=== PATIENT | female | born 1940 | race American Indian/Alaskan Native ===

== ENCOUNTER 2021-08-09 13:19 | Emergency (ER) | payer MEDICARE, OTHER ==
--- NOTE | 2021-08-09 15:42 | XRay Report ---
XR tibia fibula 2V LT INDICATION / CLINICAL INFORMATION: injury. COMPARISON: None available. 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 Moderate knee joint effusion without defin ite lipohemarthrosis. Multiple osteochondral bodies in the posterior knee. No acute fracture or malalignment. Tiny corticated ossific densities at the distal tip of the medial and lateral malleoli, consistent with sequela of remote trauma. No focal soft tissue abnormality. IMPRESSION: 1.No acute process. Signer Name: Jean Claude Russell MD Signed: 08/09/2021 3:38 PM Workstation Name: [id number]
[2021-08-09] MEDS ORDERED: oxyCODONE /ACETAMINOPHEN 5-325MG TAB PO ONE (21:21)
[2021-08-09] MEDS ORDERED: IBUPROFEN 600 MG TAB PO ONE (21:21)
[2021-08-09] MEDS ORDERED: ONDANSETRON 4 MG ODT TAB PO ONE (21:21)
[2021-08-09 21:45] VITALS: BP 109/78
--- NOTE | 2021-08-09 22:14 | XRay Report ---
Left ankle-3 views Left foot-4 views INDICATION: fall - pain. COMPARISON: None available. IMPRESSION: Left ankle: No acute osseous abnormality. Normal alignment. Mild degenerative changes in the ankle w ith moderate soft tissue swelling about the ankle . Left foot: Bulky enthesopathic change along the calcaneal tuberosity with degenerative changes in the foot. No acute osseous abnormality. Signer Name: Jag Silverio MD Signed: 08/09/2021 10:10 PM Workstation Name: [id number]
--- NOTE | 2021-08-09 22:15 | XRay Report ---
Left knee-4 views INDICATION: FALL - PAIN. COMPARISON: None available. IMPRESSION: No acute osseous abnormality. Normal alignment. Advanced tricompartmental DJD with sever al intra-articular osteochondral bodies and a small joint effusion which is likely reactive. Signer Name: Jag Silverio MD Signed: 08/09/2021 10:10 PM Workstation Name: [id number]
--- NOTE | 2021-08-09 22:45 | Emergency Department Report ---
ED Fall HPI - General Chief Complaint: Fall Stated Complaint: FALL/LT LEG INJURY Source: patient Mode of arrival: Ambulatory - History of Present Illness Initial Comments: Patient is an 81-year-old -[place] female with history of hypertension and chronic osteoarthritis who presents to the ED with complaint of acute onset persistent left knee, left ankle and left foot pain with swelling after she tripped and fell down the stairs 2 days ago. Patient states that the pain is especially worse with ambulation and that in the last 24 hours the pain has worsened. Patient denies head or neck injuries, dizziness, syncope, seizures, hip pain, back pain, neck pain, chest pain or shortness of breath, numbness and tingling or weakness of lower extremities bilaterally, nausea and vomiting. MD Complaint: fall, other (LEFT KNEE PAIN, LEFT FOOT AND ANKLE PAIN) -: days(s) (2) Fall From: down stairs (#) (3) When Fall Occurred: other (2 days ago) Fall Witnessed: yes, by family Place Fall Occurred: home Loss of Consciousness: none Prolonged Down Time?: no Symptoms Prior to Fall: none Location: other (LEFT KNEE, LEFT ANKLE AND FOOT) Location - Extremities: Left: Knee (knee ), Ankle (Left ankle and foot), Foot (Left ankle and foot) Severity: severe Severity scale (0 -10): 8 Quality: sharp, aching Context: tripped/slipped (left ankle and foot) Associated Symptoms: other (left ankle, foot and knee pain). denies: chest paint, abdominal pain - Related Data Previous Rx's Medication Instructions Recorded Last Taken Type Naproxen 500 mg PO Q12H PRN #30 tab 08/09/21 Unknown Rx predniSONE [Deltasone] 40 mg PO QDAY #10 tab 08/09/21 Unknown Rx traMADoL [Ultram] 50 mg PO Q6HR PRN #12 tablet 08/09/21 Unknown Rx Allergies Allergy/AdvReac Type Severity Reaction Status Date / Time No Known Allergies Allergy Verified 08/09/21 14:58 ED Review of Systems ROS: Stated complaint: FALL/LT LEG INJURY Other details as noted in HPI Constitutional: denies: chills, fever Eyes: denies: eye pain, eye discharge, vision change ENT: denies: ear pain, throat pain Respiratory: denies: cough, shortness of breath, wheezing Cardiovascular: denies: chest pain, palpitations Endocrine: no symptoms reported Gastrointestinal: denies: abdominal pain, nausea, vomiting, diarrhea Genitourinary: denies: urgency, dysuria, discharge Musculoskeletal: joint swelling (left ankle, foot and knee), arthralgia (left ankle, foot and knee). denies: back pain Skin: denies: rash, lesions Neurological: denies: headache, weakness, paresthesias Psychiatric: denies: anxiety, depression Hematological/Lymphatic: denies: easy bleeding, easy bruising ED Past Medical Hx - Social History Smoking Status: Never Smoker Substance Use Type: None - Medications Home Medications: Home Medications Medication Instructions Recorded Confirmed Last Taken Type Naproxen 500 mg PO Q12H PRN #30 tab 08/09/21 Unknown Rx predniSONE [Deltasone] 40 mg PO QDAY #10 tab 08/09/21 Unknown Rx traMADoL [Ultram] 50 mg PO Q6HR PRN #12 tablet 08/09/21 Unknown Rx ED Physical Exam - General Limitations: No Limitations General appearance: alert, in no apparent distress - Head Head exam: Present: atraumatic, normocephalic, normal inspection - Eye Eye exam: Present: normal appearance, PERRL, EOMI Pupils: Present: normal accommodation - ENT ENT exam: Present: normal exam, normal orophraynx, mucous membranes moist, TM's normal bilaterally, normal external ear exam - Neck Neck exam: Present: normal inspection, full ROM. Absent: tenderness - Respiratory Respiratory exam: Present: normal lung sounds bilaterally. Absent: respiratory distress, wheezes, rales, rhonchi, chest wall tenderness, accessory muscle use, decreased breath sounds, prolonged expiratory - Cardiovascular Cardiovascular Exam: Present: normal rhythm, bradycardia, normal heart sounds. Absent: systolic murmur, diastolic murmur, rubs, gallop - GI/Abdominal GI/Abdominal exam: Present: soft, normal bowel sounds. Absent: tenderness, guarding, rebound, hyperactive bowel sounds, hypoactive bowel sounds, mass - Extremities Exam Extremities exam: Present: normal inspection, full ROM (limited range of motion), tenderness (palpable left knee, ankle and foot tenderness), normal capillary refill, joint swelling (left knee). Absent: pedal edema, calf tenderness - Back Exam Back exam: Present: normal inspection, full ROM. Absent: tenderness, CVA tenderness (R), CVA tenderness (L), muscle spasm, paraspinal tenderness, vertebral tenderness - Neurological Exam Neurological exam: Present: alert, oriented X3, CN II-XII intact, normal gait, reflexes normal - Psychiatric Psychiatric exam: Present: normal affect, normal mood - Skin Skin exam: Present: warm, dry, intact, normal color. Absent: rash ED Course Vital Signs 08/09/21 08/09/21 14:58 21:43 Temperature 98.4 F 98.6 F Pulse Rate 57 L 77 Respiratory 16 20 Rate Blood Pressure 120/67 109/78 [Left] O2 Sat by Pulse 96 98 Oximetry ED Medical Decision Making - Radiology Data Radiology results: report reviewed, image reviewed [facility] [address] [place] [address] XRay Report Signed Patient: SANA HELMS MR#: [id number] 1 : 1940 Acct:[id number] Age/Sex: 81 / F ADM Date: 08/09/21 Loc: ED Attending Dr: Ordering Physician: ASHLEE REINOSO MD Date of Service: 08/09/21 Procedure(s): XR tibia fibula 2V LT Accession Number(s): [id number] cc: ED MD KEMAR Fluoro Time In Minutes: XR tibia fibula 2V LT INDICATION / CLINICAL INFORMATION: injury. COMPARISON: None available. 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 Moderate knee joint effusion without definite lipohemarthrosis. Multiple osteochondral bodies in the posterior knee. No acute fracture or malalignment. Tiny corticated ossific densities at the distal tip of the medial and lateral malleoli, consistent with sequela of remote trauma. No focal soft tissue abn ormality. IMPRESSION: 1.No acute process. Signer Name: Warren Russell MD Signed: 08/09/2021 3:38 PM Workstation Name: [id number] Transcribed By: JS Dictated By: WARREN RUSSELL MD Electronically Authenticated By: WARREN RUSSELL MD Signed Date/Time: 08/09/211537 DD/ 35 TD/TT: [facility] [address] [place] [address] XRay Report Signed Patient: SANA HELMS MR#: [id number] 1 : 1940 Acct:[id number] Age/Sex: 81 / F ADM Date: 08/09/21 Loc: ED Attending Dr: Ordering Physician: SUN SANTIAGO Date of Service: 08/09/21 Procedure(s): XR ankle 3+V LT Accession Number(s): [id number] cc: SUN SANTIAGO Fluoro Time In Minutes: Left ankle-3 views Left foot-4 views INDICATION: fall - pain. COMPARISON: None available. IMPRESSION: Left ankle: No acute osseous abnormality. Normal alignment. Mild degenerative changes in the ankle with moderate soft tissue swelling about the ankle . Left foot: Bulky enthesopathic change along the calcaneal tuberosity with degenerative changes in the foot. No acute osseous abnormality. Signer Name: Jag Silverio MD Signed: 08/09/2021 10:10 PM Workstation Name: [id number] Transcribed By: JUMA Dictated By: Jag Silverio MD Electronically Authenticated By: Jag Silverio MD Signed Date/Time: 08/09/212209 DD/ 06 TD/TT: [facility] [address] [place] [address] XRay Report Signed Patient: SANA HELMS MR#: [id number] 1 : 1940 Acct:[id number] Age/Sex: 81 / F ADM Date: 08/09/21 Loc: ED Attending Dr: Ordering Physician: SUN SANTIAGO Date of Service: 08/09/21 Procedure(s): XR knee 3V LT Accession Number(s): [id number] cc: SUN SANTIAGO Fluoro Time In Minutes: Left knee-4 views INDICATION: FALL - PAIN. COMPARISON: None available. IMPRESSION: No acute osseous abnormality. Normal alignment. Advanced tricompartmental DJD with several intra-articular osteochondral bodies and a small joint effusion which is likely reactive. Signer Name: Jag Silverio MD Signed: 08/09/2021 10:10 PM Workstation Name: [id number] Transcribed By: JW Dictated By: Jag Silverio MD Electronically Authenticated By: Jag Silverio MD Signed Date/Time: 08/09/212209 DD/ 09 TD/TT: - Medical Decision Making This is an 81-year-old -[place] female with history of hypertension and chronic osteoarthritis who presents to the ED with complaint of acute onset persistent left knee, left ankle and left foot pain with swelling after she tripped and fell down the stairs 2 days ago. Patient states that the pain is especially worse with ambulation and that in the last 24 hours the pain has worsened. In the ED, patient is alert and oriented x3 and is not in any distress. Patient was treated for pain in the ED. Left knee x-ray showed no acute fractures or subluxations but chronic severe tricompartmental degenerative joint disease. Left ankle and left foot x-ray showed no acute fractures or subluxation, also showed degenerative joint disease. On reevaluation, patient's pain is well controlled medication. Left knee was splinted with Kurtis wrap and the patient was discharged home on medications for pain and advised to follow-up with her primary care physician in 7 to 10 days for reevaluation. Patient was advised to return to the ED immediately if symptoms get worse. - Differential Diagnosis knee fracture; knee sprain; ankle sprain; foot sprain Critical care attestation.: If time is entered above; I have spent that time in minutes in the direct care of this critically ill patient, excluding procedure time. ED Disposition Clinical Impression: Chronic osteoarthritis Sprain of left knee/leg Qualifiers: Encounter type: initial encounter Qualified Code(s): S83.92XA - Sprain of unspecified site of left knee, initial encounter Sprain of left foot Qualifiers: Encounter type: initial encounter Qualified Code(s): S93.602A - Unspecified sprain of left foot, initial encounter Disposition: 01 HOME / SELF CARE / HOMELESS Is pt being admited?: No Does the pt Need Aspirin: No Condition: Stable Instructions: Knee Sprain, Adult, [id number], Arthritis, [id number], Foot Sprain, How to Use a Knee Brace Additional Instructions: All imaging reports were reviewed and are all nonactionable, no acute fractures or subluxations were observed except chronic severe degenerative joint disease in the left knee, left ankle and left foot. Therefore your injuries are likely musculoskeletal following the fall that you encountered. Take medications with food, drink plenty of fluids, follow-up with your primary care physician in 7 to 10 days for reevaluation. Return to the ED immediately if symptoms get worse. Prescriptions: predniSONE [Deltasone] 40 mg PO QDAY #10 tab Naproxen 500 mg PO Q12H PRN #30 tab PRN Reason: Pain , Severe (7-10) traMADoL [Ultram] 50 mg PO Q6HR PRN #12 tablet PRN Reason: Pain Referrals: [facility] [Provider Group] - 7-10 days Time of Disposition: 22:51 Print Language: AMHARIC
== END 2021-08-09 23:28 | disposition home or self-care (01) ==
LOC: EDBD → ED 13:19
DX: S83.92XA Sprain of unspecified site of left knee, initial encounter (principal); S93.602A Unspecified sprain of left foot, initial encounter; W10.9XXA Fall (on) (from) unspecified stairs and steps, initial encounter; Y93.89 Activity, other specified; Y92.89 Other specified places as the place of occurrence of the external cause; Y99.8 Other external cause status
CPT/HCPCS: 99283; J3490; Q0162